=== PATIENT | male | born 1945 | race Two or more races ===

== ENCOUNTER 2024-11-08 07:18 | Day surgery (SDC) | payer OTHER ==
[2024-11-05 14:53] LABS: Hematocrit 44.3 % (41.0-53.0); Hemoglobin 14.5 g/dL (13.5-17.5); Mean Corpuscular Hemoglobin 26.2 pg (28.0-32.0); Mean Corpuscular Volume 80.1 fL (80.0-100.0); Nucleated Red Blood Cells % 0.1 %
[2024-11-05 15:11] LABS: INR 1.03 (0.9-1.15); Partial Thromboplastin Time 26.8 SEC (24.5-34.5); Prothrombin Time 10.9 sec (9.3-11.8)
[2024-11-05 15:18] LABS: Alanine Aminotransferase 23 U/L (7-40); Alkaline Phosphatase 83 U/L (46-116); Anion Gap 12 (5-15); BUN/Creatinine Ratio 12.0 (10.0-20.0); Blood Urea Nitrogen 12 mg/dL (9-23); Calcium 10.1 mg/dL (8.7-10.4); Carbon Dioxide 23 mmol/L (20-31); Potassium 3.8 mmol/L (3.5-5.1); Sodium 143 mmol/L (136-145); Total Protein 7.0 g/dL (5.7-8.2)
[2024-11-05 15:19] LABS: Bilirubin, Total 0.5 mg/dL (0.2-1.0)
[2024-11-05 15:22] LABS: Albumin 4.9 g/dL (3.2-4.8); Chloride 108 mmol/L (98-107); Glucose 180 mg/dL (74-106)
[2024-11-08] VITALS (8 sets, daily range): BP systolic 128–142; BP diastolic 65–74; PULSE 62–69; RESP 12–16; O2SAT 93–97
[~2024-11-08] VITALS: Ht 176.5 cm; Wt 107.5 kg
[~2024-11-08 07:18] MED LIST: ACET500T58 PO; ALBUAER3 IN; ALLO300T2 PO; APIX5TAB PO; ATOR40TA52 PO; DILT90TA19 PO; EMPA1TAB3 PO; ERGO1CAP12 PO; FENO145T27 PO; FINA5TAB4 PO; FINE10TA PO; FLUT1SPR21; FURO40TA4 PO; GABA-1250 PO; IBUP-1455 PO; LOSA-534 PO; MET50T PO; METF-370 PO; MULT-1018 PO; OMEP-448 PO; POTA-211 PO; SACU1TAB7 PO; TAMS0.4C39 PO; TIZA4CAP7 PO
[2024-11-08] MEDS: ACETAMINOPHEN 325 MG TAB PO ONE (09:30)
[2024-11-08] MEDS: ONDANSETRON HCL 4 MG/2 ML VIAL IV ONE (09:37)
[2024-11-08] MEDS ORDERED: LIDOCAINE 2%HCL (LOCAL ANESTH.) INJ 20ML MDV ONE (11:58)
[2024-11-08] MEDS ORDERED: SODIUM CHL 0.9% 50 ML ONE (12:03)
[2024-11-08] MEDS ORDERED: ANGIOMAX 250 MG VIAL IV ONE (12:03)
[2024-11-08] MEDS ORDERED: fentaNYL CITRATE 100 MCG/2 ML VL ONE (12:18)
[2024-11-08] MEDS ORDERED: MIDAZOLAM HCL 2MG/2ML 2ml VIAL (1mg/ml) ONE (12:18)
[2024-11-08] MEDS ORDERED: IODIXANOL 320MG/ML 100ML BTL IV ONE (12:30)
[2024-11-08] MEDS ORDERED: CLOPIDOGREL BISULFATE 75 MG TAB ONE (12:54)
--- NOTE | 2024-11-08 13:35 | DVHHP ---
ADMIT DATE: 11/08/2024 HISTORY OF PRESENT ILLNESS: The patient is a 79-year-old with numerous conditions, severe osteoarthritis, spinal stenosis, chronic pain syndrome, irritable bowel syndrome, reactive airway disease, COPD with recurrent pulmonary infection. Now presents with signs and symptoms complex of increasing chest pain. Remote history of tobacco use, however. He has gone through multiple medications in terms of inhaler therapy, multiple surgical interventions as well. Now, the patient is having some chest pain and some shortness of breath associated with exercise. Stress test shows anterior wall reversibility and because of the above presentation and symptoms the patient is experiencing, it is felt that the patient should undergo coronary angiography to define coronary anatomy. Risks and benefits were explained to the patient. The patient understands and agrees. The patient denies any history of TIA or CVA. No movement disorder. Has extensive amount of COPD and reactive airway disease as well and recurrent infection. He also has severe osteoarthritis, osteoporosis, a component of rheumatoid arthritis as well. History of chest pain, history of coronary artery disease, history of hypertension, hyperlipidemia as well. Positive for irritable bowel syndrome, abdominal discomfort, back problem. Also neuropathy as well as well as vasculopathy. PHYSICAL EXAMINATION: PHYSICAL EXAMINATION: VITAL SIGNS: Blood pressure is 122/80, pulse of 70, O2 saturation 98% on room air. HEENT: Pupils are reactive. Funduscopic exam shows no AV nicking, no papilledema, some hard exudates, however. Sclerae anicteric. Tympanic membranes are negative. Oral mucosa moist. Posterior pharynx without any exudates. NECK: The patient had 2+ JVD. No nuchal rigidity appreciated. No cervical adenopathy. No supraclavicular adenopathy. He does not have any axillary adenopathy as well. Carotid pulses are 2+ symmetrical. Normal upstroke and contour. Thyroid is within normal limits. PULMONARY: Diffuse rhonchi as well and expiratory wheezes scattered throughout the lung field. Tympanic to percussion. No egophony. CARDIOVASCULAR: Regular rate. There is a 2/6 systolic murmur along the left sternal border. Without S3, without S4. PMI is not displaced. ABDOMEN: Obese. Some epigastric tenderness and some suprapubic tenderness elucidated and positive CVA tenderness, even though urinalysis is negative. Normal bowel sound. Liver approximately 5 cm by percussion. NEUROLOGIC: The patient is intact. DTRs are 2+ and symmetrical. Cranial nerves 2 through 12 within normal limits. Sensory and motor modalities are intact. Negative for ataxia. Negative for Babinski. Negative for pronator drift. EXTREMITIES: 1+ edema and 1+ pulses bilaterally. ASSESSMENT AND PLAN: Thus, the patient with positive review of systems now with chest pain, abnormal stress test. Echocardiogram shows preserved left ventricular ejection fraction. The patient is now to undergo coronary angiography to define coronary anatomy. Further recommendations after the angiogram. Pavan Samano MD SA/WILY/OPAL TID: [id number] RECEIPT: [id number]
--- NOTE | 2024-11-08 14:23 | DVHDS ---
DATE OF DISCHARGE: 11/08/2024 DISCHARGE DIAGNOSES: Coronary artery disease, status post angioplasty with stent placement of the mid left anterior descending artery. The patient has a right coronary dominant system. It is a large caliber vessel, greater than 5 mm in size proximally. No flow restrictive lesion. EF was preserved. HOSPITAL COURSE: The patient underwent successful revascularization of the LAD. Follow up with me in 1 week. Stable at the time of discharge. DISPOSITION: Home. ACTIVITY: As instructed. DIET: Will be 2 g sodium diet. If he develops any other symptoms, I have described to the patient the patient is to come to the Emergency Room [facility]. Pavan Samano MD SA/WILY/AMI TID: [id number] RECEIPT: [id number]
--- NOTE | 2024-11-08 20:35 | DVHOP ---
DATE OF SURGERY: 11/08/2024 PROCEDURES PERFORMED: * Selective left and right coronary angiography, ventriculogram, right iliac angiography, angioplasty with stent placed in the mid left anterior descending artery with a 2.5 x 18 mm [place] stent. * FFR, thrombectomy of the LAD as well as shockwave treatment of the LAD with a 2.5 x 13 mm Shockwave thrombectomy catheter. DISPOSITION: There were no complications. The patient tolerated the procedure well. The patient also received conscious sedation. DESCRIPTION OF PROCEDURE: The patient was prepped and draped in a sterile condition. Then, 1% Xylocaine was used to anesthetize the right groin. Using a Cook needle, right femoral artery was engaged. Using Seldinger technique, a 6-Iranian sheath in the right femoral artery. Using 6-Iranian JL4 catheter and 6-Iranian JR4 catheter, selective left and right coronary angiography was performed. Then, using a 6-Iranian Pigtail catheter, ventriculogram was done. Then the 6-Iranian diagnostic system was exchanged for a 6-Iranian interventional system. Using 6-Iranian XP 3.5 guide catheter, the left main was cannulated. Using a Choice PT extra support wire, the left anterior descending artery was then crossed. FFR was done and the lesion was pretreated with a 2.5 x 13 mm Shockwave thrombectomy catheter. Two applications were deployed. Following that, a 2.5 x 18 mm Alfredito [place] stent was deployed across the lesion at 16 atmospheres. There were no complications. The patient tolerated the procedure well. RESULTS: * Left main patent. * Left anterior descending artery had a hemodynamically significant lesion of greater than 80%, with an FFR of 0.79. Post angioplasty with stent placement of 2.5 x 18 mm Alfredito [place] stent following thrombectomy with Shockwave balloon with less than 10% residual stenosis. * Circumflex artery nondominant vessel without any flow restrictive lesion. * Right coronary artery large dominant vessel greater than 5 mm in size without any flow restriction. * Left ventricular function was preserved with an estimated EF of 60% with an LVEDP of 12-14 mmHg with no gradient across the aortic valve. Thus, the patient had a high-grade narrowing of the left anterior descending artery status post thrombectomy with Shockwave and FFR of 0.79. The patient underwent successful stenting with a 2.5 x 18 mm Alfredito [place] stent with less than 10% residual stenosis. We will continue to follow the patient. Dual antiplatelet therapy will be initiated. Pavan Samano MD SA/JOSE/DEBBY TID: [id number] RECEIPT: [id number]
[2024-11-09] MEDS ORDERED: METH4PAK PO (07:04)
[2024-11-09] MEDS ORDERED: HYDR50TA69 PO (07:04)
== END 2024-11-08 15:23 | disposition home or self-care (01) ==
LOC: MERGE 07:18 → CATH 07:18
PROVIDERS: ATTEND Internal Medicine Cardiovascular Disease
DX: I25.10 Atherosclerotic heart disease of native coronary artery without angina pectoris (principal); J44.89 Other specified chronic obstructive pulmonary disease; E78.5 Hyperlipidemia, unspecified; G62.9 Polyneuropathy, unspecified; R79.1 Abnormal coagulation profile; G89.4 Chronic pain syndrome; I10 Essential (primary) hypertension; K58.9 Irritable bowel syndrome, unspecified; M06.9 Rheumatoid arthritis, unspecified; M48.00 Spinal stenosis, site unspecified; M81.0 Age-related osteoporosis without current pathological fracture; Z87.891 Personal history of nicotine dependence; Z79.899 Other long term (current) drug therapy
CPT/HCPCS: 0523T; 36415; 80053; 85025; 85610; 85730; 92972; 92973; 93458; C1725; C1760; C1769; C1874; C1887; C1894; C9600; J0583; J1644; J2250; J2405; J3010; J7030; Q9967; 99152; 99153

== ENCOUNTER 2024-11-09 05:09 | Emergency (ER) | payer OTHER ==
[~2024-11-09] VITALS: Ht 175.3 cm; Wt 107.9 kg
[2024-11-09 05:09] VITALS: BP 139/79; PULSE 79; RESP 18; TEMP 97.8; O2SAT 95
[2024-11-09] MEDS: diphenhdrAMINE HCL 50 MG/1 ML VL IM ONE (06:48)
[2024-11-09] MEDS: methylPREDNISolone SOD SUCC 125 MG/2 ML VL IM ONE (06:48)
--- NOTE | 2024-11-09 06:51 | ED.PDOC ---
HPI Allergic reaction HPI Comments A 79-YEAR-OLD MALE WITH A HISTORY OF HYPERLIPIDEMIA, DIABETES, HYPERTENSION, AND RED SYNDROME PRESENTS TO THE ED WITH A C/C OF A RASH LOCATED TO THE UPPER CHEST, UPPER ABDOMEN AT THE TOP OF SCALP WITH THE ASSOCIATED ITCHINESS. PATIENT STATES THEY HE HAD AN ANGIOGRAM PERFORMED YESTERDAY, AND WAS GIVEN ANESTHESIA INSERT DEVELOP BIT OF SYMPTOMS THE WRONG TIME P.M. YESTERDAY NIGHT. PATIENT NOTES OF ALSO EATING CHERRIES BEFORE GOING TO BED. PATIENT DENIES ANY SHORTNESS OF BREATH, RESPIRATORY DISTRESS, GLOSSITIS, WHEEZING, OR ANY OTHER ASSOCIATED SYMPTOMS, MODIFIERS AT THIS TIME. PT IS ALERT, ORIENTATION X4 WITH NORMAL GAIT. NO OTHER SYMPTOMS REPORTED AT THIS TIME OF CARE. Chief Complaint: Rash Time Seen by MD: 06:47 Reviewed Notes: Nurses Notes, Medications, Allergies Allergies: Coded Allergies: Codeine (Verified Allergy, Unknown, 11/09/24) Penicillins (Verified Allergy, Unknown, 11/09/24) Sulfa Antibiotics (Verified Allergy, Unknown, 11/09/24) Uncoded Allergies: ADHESIVE TAPE (Allergy, Unknown, 11/09/24) Information Source: Patient Mode of Arrival: Ambulatory Severity: Moderate Rash: Moderate SOB: None Difficulty swallowing: None Pruritus: Moderate Timing: Hours Duration: Since onset, Hours Prehospital treatment: None Location: Abdomen, Chest Exposed to: Medication History of: None Modyifying Factors: None Associated Sign and Symptoms: None Past Medical History PAST MEDICAL HISTORY: HTN Surgical History: Denies all surgeries Family History Family History: Unknown Social History Smoker: Non-Smoker Alcohol: Denies ETOH Use Drugs: Denies Drug Use Lives In: Home Constitutional: denies: chills, diaphoresis, fatigue, fever, malaise, sweats, weakness, others EENTM: denies: blurred vision, double vision, ear bleeding, ear discharge, ear drainage, ear pain, ear ringing, eye pain, eye redness, hearing loss, mouth pain, mouth swelling, nasal discharge, nose bleeding, nose congestion, nose pain, photophobia, tearing, throat pain, throat swelling, voice changes, others Respiratory: denies: cough, hemoptysis, orthopnea, SOB at rest, shortness of breath, SOB with excertion, stridor, wheezing, others Cardiovascular: denies: chest pain, dizzy spells, diaphoresis, Dyspnea on exertion, edema, irregular heart beat, left arm pain, lightheadedness, palpitations, PND, syncope, others Gastrointestinal: denies: abdomen distended, abdominal pain, blood streaked bowels, constipated, diarrhea, dysphagia, difficulty swallowing, hematemesis, melena, nausea, poor appetite, poor fluid intake, rectal bleeding, rectal pain, vomiting, others Genitourinary: denies: burning, dysuria, flank pain, frequency, hematuria, incontinence, penile discharge, penile sore, pain, testicle pain, testicle swelling, urgency, others Neurological: denies: dizziness, fainting, headache, left sided numbness, left sided weakness, numbness, paresthesia, pre-existing deficit, right sided numbness, right sided weakness, seizure, speech problems, tingling, tremors, weakness, others Musculoskeletal: denies: back pain, gout, joint pain, joint swelling, muscle pain, muscle stiffness, neck pain, others Integumetry: reports: lumps, rash; denies: bruises, change in color, change in hair/nails, dryness, laceration, lesions, wounds, others Allergic/Immunocompromised: reports: Hives, Itching; denies: Difficulty Healing, Frequent Infections, others Hematologic/Lymphatic: denies: anemia, blood clots, easy bleeding, easy bruising, swollen glands, others Endocrine: denies: excessive hunger, excessive sweating, excessive thirst, excessive urination, flushing, intolerance to cold, intolerance to heat, unexplained weight gain, unexplained weight loss, others Psychiatric: denies: anxiety, bipolar disorder, depression, hopeless, panic disorder, schizophrenia, sleepless, suicidal, others All Other Systems: Reviewed and Negative Physical Exam General Appearance: Mild Distress, Normal, Obese HEENT: Normal ENT Inspection, PERRL/EOMI, Pharyngeal Erythema (TONSILLAR SWELLING, NO EXUDATES. ), TMs Normal Neck: Full Range of Motion, Non-Tender, Normal, Normal Inspection Respiratory: Chest Non-Tender, Lungs Clear, No Accessory Muscle Use, No Respiratory Distress, Normal Breath Sounds Cardiovascular: No Edema, No JVD, No Murmur, No Gallop, Normal Peripheral Pulses, Regular Rate/Rhythm Breast Exam: Deferred Gastrointestinal: No Organomegaly, Non Tender, No Pulsatile Mass, Normal Bowel Sounds, Soft Genitalia: Deferred Pelvic: Deferred Rectal: Deferred Extremities: No calf tenderness, Normal capillary refill, Normal inspection, Normal range of motion, Non-tender, No pedal edema Musculoskeletal : Apperance: Normal Neurologic: Alert, 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 ), Warm Peripheral Pulses: 2+ carotid (R), 2+ carotid (L) Lymphatic: No Adenopathy Was a procedure done? Was a procedure done?: No Differential diagnosis (all) Differential Diagnosis: Anaphylaxis, Drug Reaction, Urticaria X-Ray, Labs, Meds, VS Vital Signs Date Time Temp Pulse Resp B/P (MAP) Pulse Ox O2 Delivery O2 Flow Rate FiO2 11/09/24 05:09 97.8 79 18 139/79 95 97.8 Current Medications Medications (Trade) Dose Ordered Sig/Rama Route Start Time Stop Time Status Last Admin Methylprednisolone Sodium Succinate (Solu Medrol) 125 mg ONCE ONCE IM 11/09/24 06:45 11/09/24 06:46 DC 11/09/24 06:48 Diphenhydramine HCl (Benadryl Injection) 50 mg ONCE ONCE IM 11/09/24 06:45 11/09/24 06:46 DC 11/09/24 06:48 X-Ray, Labs, Meds, VS Comment EXTERNAL MEDICAL RECORDS REVIEWED: [NONE] INDEPENDENT HISTORIANS: [NONE] SOCIAL DETERMINANTS OF HEALTH: [NONE] LABS ORDERED: NONE REVIEWED AND INTERPRETED RESULTS: NONE IMAGING ORDERED: NONE TREATMENTS ORDERED: 125 MG OF SOLU-MEDROL, 50 MG OF BENADRYL. PROCEDURES PERFORMED: NONE CRITICAL CARE TIME: NONE I HAVE DISCUSSED THE PATIENT WITH THE ATTENDING PHYSICIAN DR. LEHMAN] AND HE AGREES WITH THE PATIENT'S PLAN OF CARE AND DISPOSITION. BASED ON HISTORY OF PRESENT ILLNESS, AND PHYSICAL EXAM, PATIENT WILL BE DISCHARGED HOME. DISCUSSED PLAN FOR DISCHARGE HOME WITH RX [MEDROL DOSE PACK AND VISTARIL ]. MEDICATION WARNINGS GIVEN. SHARED DECISION MAKING: DISCUSSED WITH PATIENT THAT THEIR WORKUP WAS NORMAL. PATIENT INSTRUCTED TO FOLLOW UP WITH PRIMARY CARE PROVIDER IN 1-2 DAYS FOR RE- EVALUATION OF SYMPTOMS. PATIENT VERBALIZES UNDERSTANDING TO RETURN TO ED FOR NEW OR WORSENING SYMPTOMS OR IF FOLLOW UP WITH PCP CANNOT BE OBTAINED. PATIENT FEELS COMFORTABLE GOING HOME AT THIS TIME. ALL QUESTIONS ADDRESSED AT TIME OF DISCHARGE. Time of 1ST Reevaluation: 07:17 Reevaluation 1ST: Improved Patient Education/Counseling: Diagnosis, Treatment, Need For Follow Up Family Education/Counseling: Diagnosis, Treatment, Need For Follow Up Medical Screening: No EMC Exist At This Time SEPSIS Sepsis Screen Date sepsis recognized/suspect: Nov 09, 2024 Time Sepsis recognized/suspect: 508 Recent Procedure: Yes (STENT PLACED YESTERDAY) On Antibiotic Therapy: No Respiratory Rate >20: No Heart Rate >90: No Temp<36 C (96.8 F) or >38.3 C: No SBP <90 or MAP <65 mmHG: No New Acute Mental Status Change: No Is the patient on CPAP, BIPAP,: No Vital Signs Date Time Temp Pulse Resp B/P (MAP) Pulse Ox O2 Delivery O2 Flow Rate FiO2 11/09/24 05:09 97.8 79 18 139/79 95 97.8 Medications Medications Dose Ordered Sig/Rama Route Start Time Stop Time Status Last Admin Dose Admin Diphenhydramine HCl 50 mg ONCE ONCE IM 11/09/24 06:45 11/09/24 06:46 DC 11/09/24 06:48 Methylprednisolone Sodium Succinate 125 mg ONCE ONCE IM 11/09/24 06:45 11/09/24 06:46 DC 11/09/24 06:48 Departure 1 Departure Time of Disposition: 07:20 Impression: Primary Impression: Allergic reaction Qualified Codes: T78.40XA - Allergy, unspecified, initial encounter Disposition: HOME / SELF CARE / HOMELESS Condition: Stable Additional Instructions: FOLLOW-UP WITH PCP IN 1 TO 2 DAYS. TAKE MEDICATIONS PRESCRIBED. RETURN TO ED FOR ANY NEW OR WORSENING SYMPTOMS. e-Prescriptions Hydroxyzine Hcl (Hydroxyzine Hcl) 50 Mg Tab 1 TAB PO TID, #30 TAB Prov: ROLAND AMBRIZ 11/09/24 Methylprednisolone (Medrol Dosepak) 4 Mg Tyler 4 MG PO UD, #21 TAB UAD Prov: ROLAND AMBRIZ 11/09/24 Discharged With: Self, Spouse Critical Care Note Critical Care Time?: No Stability Stability form required: No Heart Score Heart Score: Heart Score Response (Comments) Value History N/A 0 EKG N/A 0 Age N/A 0 Risk Factors N/A 0 Troponin N/A 0 Total 0 I personally scribed for ROLAND AMBRIZ ([email or web address]) on 11/09/24 at 06:51. Electronically submitted by Jeyson Morin ([email or web address]). I personally scribed for ROLAND AMBRIZ ([email or web address]) on 11/09/24 at 06:54. Electronically submitted by Jeyson Morin ([email or web address]). I personally scribed for ROLAND AMBRIZ ([email or web address]) on 11/09/24 at 06:55. Electronically submitted by Jeyson Morin ([email or web address]). ROLAND AMBRIZ Nov 09, 2024 06:51
[2024-11-09] MEDS ORDERED: HYDR50TA69 PO (07:04)
[2024-11-09] MEDS ORDERED: METH4PAK PO (07:04)
== END 2024-11-09 07:05 | disposition home or self-care (01) ==
LOC: ER 05:09
DX: T78.49XA Other allergy, initial encounter (principal); I10 Essential (primary) hypertension; Z88.0 Allergy status to penicillin; Z88.2 Allergy status to sulfonamides; Z88.5 Allergy status to narcotic agent; X58.XXXA Exposure to other specified factors, initial encounter
CPT/HCPCS: 96372; 99283; J1200; J2919